=== PATIENT | female | born 1970 | race Caucasian/White ===

== ENCOUNTER → 2017-02-17 | Outpatient (REF) | payer OTHER | LOC: M LAB REF 16:10 | PROVIDERS: ATTEND Obstetrics & Gynecology | DX: N39.0 Urinary tract infection, site not specified (principal) ==

== ENCOUNTER 2017-04-20 05:43 | Day surgery (SDC) | payer OTHER ==
[2017-04-20] MEDS ORDERED: LR 1,000 ML IV ×2 (06:00)
[2017-04-20] MEDS ORDERED: LIDOCAINE 1% MDV 20ML VIAL SQ (06:00)
[2017-04-20] MEDS ORDERED: ROCURONIUM BROMIDE 50 MG/5 ML VIAL As Ordered ×2 (07:13→10:08)
[2017-04-20] MEDS ORDERED: LIDOCAINE 2% INJ 100 MG/5 ML SDV (FOR ANES.) As Ordered (07:13)
[2017-04-20] MEDS ORDERED: PROPOFOL 200 MG/20 ML VIAL As Ordered (07:13)
[2017-04-20] MEDS ORDERED: dexameTHASONE 4 MG/ML 1ML VIAL (J1100) As Ordered (07:13)
[2017-04-20] MEDS ORDERED: fentaNYL 250 MCG/5 ML INJECTION (J3010) As Ordered (07:14)
[2017-04-20] MEDS ORDERED: MIDAZOLAM INJ 2 MG/2 ML VIAL (J2250) As Ordered (07:14)
[2017-04-20] MEDS ORDERED: ceFAZolin 2 GM/D5W 50 ML IV BAG (J0690 PER 500MG) As Ordered (07:35)
[2017-04-20] MEDS ORDERED: PHENYLephrine HCL 500 MCG/5 ML (100MCG/ML) SYRINGE (J2370) As Ordered (08:01)
[2017-04-20] MEDS ORDERED: KETOROLAC 60 MG/2 ML VIAL (J1885) As Ordered (08:39)
[2017-04-20] MEDS ORDERED: GLYCOPYRROLATE INJ 0.2 MG/ML 2 ML VIAL As Ordered (08:39)
[2017-04-20] MEDS ORDERED: HYDROmorphone HCL 2 MG/ML 1ML VIAL (J1170) As Ordered (08:39)
[2017-04-20] MEDS ORDERED: ONDANSETRON 4MG/2ML VIAL (J2405) As Ordered (08:39)
[2017-04-20] MEDS ORDERED: NEOSTIGMINE 10 MG/10 ML VIAL (J2710) As Ordered (08:39)
[2017-04-20] MEDS: MULTIVITAMINS/MINERALS THERAP 1 TAB PO (09:00)
[2017-04-20] MEDS ORDERED: MORPHINE 1MG/ML IN 0.9% NACL 100ML IV BAG As Ordered (10:28)
[2017-04-20] MEDS: LR 1,000 ML IV ×3 (10:47→19:15)
[2017-04-20] MEDS ORDERED: NALOXONE INJ 0.4 MG/1 ML VIAL (J2310) IV (11:15)
[2017-04-20] MEDS ORDERED: fentaNYL 100 MCG/2 ML INJECTION (J3010) IV (11:15)
[2017-04-20] MEDS ORDERED: EPIDURAL/PCA KEYS XX (11:15)
[2017-04-20] MEDS ORDERED: NALBUPHINE HCL 10 MG/ML AMP (J2300) IV (11:15)
[2017-04-20] MEDS ORDERED: PERCOCET 5MG/325MG TAB PO (11:15)
[2017-04-20] MEDS ORDERED: MORPHINE 1MG/ML IN 0.9% NACL 100ML IV BAG IV (11:15)
[2017-04-20] MEDS ORDERED: diphenhydrAMINE INJ 50MG/ML VIAL (J1200) IV (11:15)
[2017-04-20] MEDS: ONDANSETRON 4MG/2ML VIAL (J2405) IV (11:30)
[2017-04-20] MEDS: PRAVASTATIN 20 MG TAB PO (21:00)
[2017-04-20] MEDS: PROMETHAZINE INJ 25 MG/ML VIAL (J2550) IV (21:57)
[2017-04-21] MEDS: LR 1,000 ML IV (03:15)
[2017-04-21] MEDS ORDERED: NORCO, ANEXSIA 5/325MG TABLET (HYDROcodone/ACETAMINOPHEN) PO (06:00)
[2017-04-21] MEDS: IBUPROFEN 600 MG TAB PO (07:06)
[2017-04-21 07:18] LABS: HEMATOCRIT 38.1 % (36.0-47.0); HEMOGLOBIN 12.3 g/dl (12.0-16.0); MEAN CORPUSCULAR HEMOGLOBIN 27.5 pg (27.0-33.0); MEAN CORPUSCULAR HGB CONC 32.3 g/dl (32.0-36.5); MEAN CORPUSCULAR VOLUME 85.2 fl (80.0-96.0); PLATELET COUNT, AUTOMATED 199 10^3/uL (150-450); RED BLOOD COUNT 4.47 10^6/uL (4.00-5.40); RED CELL DISTRIBUTION WIDTH 13.2 % (11.5-14.5); WHITE BLOOD COUNT 10.7 10^3/uL (4.0-10.0)
[2017-04-21] MEDS: INFLUENZA QUADRIVALENT PF VACCINE 0.5ML SYRINGE (90686) IM (09:00)
[2017-04-21] MEDS: MULTIVITAMINS/MINERALS THERAP 1 TAB PO (09:00)
== END 2017-04-21 11:40 | disposition home or self-care (01) ==
LOC: M SDC 05:43 → M OBS 11:55
DX: N95.0 Postmenopausal bleeding (principal); D25.1 Intramural leiomyoma of uterus; E78.00 Pure hypercholesterolemia, unspecified; M54.9 Dorsalgia, unspecified; Z78.0 Asymptomatic menopausal state
CPT/HCPCS: 58571